=== PATIENT | female | born 1960 | race Two or more races ===

== ENCOUNTER → 2018-12-24 | Emergency (ER) | payer OTHER ==
[~2018-12-24] VITALS: Ht 154.9 cm; Wt 68.9 kg
[~2018-12-24] MED LIST: [UNRECOGNIZED DRUG - REMARK]
== END | disposition home or self-care (01) ==
LOC: ER 04:42
DX: M94.0 Chondrocostal junction syndrome [Tietze] (principal)

== ENCOUNTER 2019-08-27 16:23 | Emergency (ER) | payer OTHER ==
[~2019-08-27] VITALS: Ht 154.9 cm; Wt 68.0 kg
== END 2019-08-27 19:16 | disposition home or self-care (01) ==
LOC: ER 16:23
DX: J06.9 Acute upper respiratory infection, unspecified (principal)

== ENCOUNTER 2021-11-15 11:47 | Emergency (ER) | payer OTHER ==
[~2021-11-15] VITALS: Ht 154.9 cm; Wt 68.5 kg
[2021-11-15] MEDS ORDERED: DICLOFENAC POTA50 MG PO (12:07)
== END 2021-11-15 15:52 | disposition home or self-care (01) ==
LOC: ER 11:47
DX: M79.604 Pain in right leg (principal)

== ENCOUNTER 2023-10-08 11:28 | Emergency (ER) | payer OTHER ==
[~2023-10-08] VITALS: Ht 154.9 cm; Wt 68.9 kg
[~2023-10-08 11:28] MED LIST changes: +DICLOFENAC POTA50 MG PO
[2023-10-08] MEDS ORDERED: KETOROLAC TROMETHAMINE 30 MG VIAL IM STA (13:20)
[2023-10-08] MEDS ORDERED: ORPHENADRINE CITRATE 100 MG TABLET PO STA (13:21)
[2023-10-08] MEDS ORDERED: KETOROLAC TROMETHAMINE 30 MG VIAL ONE (13:39)
== END 2023-10-08 16:55 | disposition home or self-care (01) ==
LOC: ER 11:29
DX: M54.2 Cervicalgia (principal); Z91.013 Allergy to seafood
CPT/HCPCS: 72040; 96372; 99283; J1885

== ENCOUNTER 2023-11-13 13:50 | Emergency (ER) | payer OTHER ==
[~2023-11-13] VITALS: Ht 154.9 cm; Wt 68.0 kg
[2023-11-13] MEDS ORDERED: BENTYL10 MG/1 ML (14:43)
[2023-11-13] MEDS ORDERED: [UNRECOGNIZED DRUG - OTHER] PO (14:45)
[2023-11-13] MEDS ORDERED: KETOROLAC TROMETHAMINE 60 MG VIAL IM STA (15:28)
[2023-11-13] MEDS ORDERED: FAMOtidine 20 MG TABLET PO ONE (18:45)
== END 2023-11-13 19:27 | disposition home or self-care (01) ==
LOC: ER 13:52
DX: M79.10 Myalgia, unspecified site (principal); Z91.013 Allergy to seafood
CPT/HCPCS: 29125; 73090; 96372; 99283; J1885

== ENCOUNTER 2024-02-15 14:21 | Emergency (ER) | payer OTHER ==
[~2024-02-15] VITALS: Ht 154.9 cm; Wt 69.4 kg
[~2024-02-15 14:21] MED LIST changes: +BENTYL10 MG/1 ML; +[UNRECOGNIZED DRUG - OTHER] PO
[2024-02-15 15:26] VITALS: BP 148/77; O2SAT 198
[2024-02-15] MEDS ORDERED: BENZONATATE 100 MG CAPSULE PO ONE (18:45)
[2024-02-15] MEDS ORDERED: GUAIFENESIN 200 MG/10 ML BLIST.PACK PO ONE ×2 (18:45→18:55)
[2024-02-15] MEDS ORDERED: IPRATROPIUM/ALBUTEROL SULFATE 3 ML AMPUL.NEB IH SCH (18:45)
[2024-02-15 18:56] LABS: HEMATOCRIT 38.7 % (36.0-45.00); HEMOGLOBIN 13.1 g/dL (12.0-15.00); MEAN CELL VOLUME 85.7 fL (80.00-100.00); MEAN CORPUSCULAR HEMOGLOBIN 29.1 pg (27.00-32.0); MEAN CORPUSCULAR HGB CONC 33.9 g/dl (32.0-36.0); PLATELET COUNT 250 K/uL (150-450); RED BLOOD COUNT 4.52 M/uL (4.00-6.00); RED CELL DISTRIBUTION WIDTH 13.8 % (11.5-14.5)
[2024-02-15] MEDS ORDERED: IPRATROPIUM/ALBUTEROL SULFATE 3 ML AMPUL.NEB IH ONE (19:12)
[2024-02-15] MEDS ORDERED: GILTUSS COUGH-118 M1 PO (21:31)
== END 2024-02-15 21:51 | disposition home or self-care (01) ==
LOC: ER 14:23
PROVIDERS: Preventive Medicine Public Health & General Preventive Medicine
DX: J06.9 Acute upper respiratory infection, unspecified (principal); Z20.822 Contact with and (suspected) exposure to COVID-19; Z91.013 Allergy to seafood